=== PATIENT | male | born 1960 | race Caucasian/White ===

== ENCOUNTER 2019-01-13 09:29 | Emergency (ER) | payer OTHER ==
[~2019-01-13] VITALS: Ht 177.8 cm; Wt 86.2 kg
[2019-01-13 09:29] VITALS: BP 139/70
--- NOTE | 2019-01-13 09:30 | NUR ---
DARCY ANDRADE ALS TO ER BED 04
--- NOTE | 2019-01-13 09:40 | NUR ---
ACCU CHECK 160
[2019-01-13] MEDS ORDERED: MORPHINE SULFATE 2 MG/ML SYR IVP ONE (09:50)
[2019-01-13] MEDS ORDERED: levETIRAcetam 1,000 MG in NACL 0.9% 100 ML IV ONE (09:50)
[2019-01-13] MEDS ORDERED: NACL 0.9% 1,000 ML IV ONE (09:50)
--- NOTE | 2019-01-13 09:51 | NUR ---
XRAY AT BEDSIDE
--- NOTE | 2019-01-13 10:00 | NUR ---
PER EMS, WITNESSED SEIZURE BY BYSTANDER PT WAS WALKING DOWN STRE[address]. PT POSTICAL, DISORIENTED. FOLLOWS COMMANDS BY VOICE. HEMATOMA PRESENT TO PTS HEAD. C/O NECK PAIN. C-COLLAR PLACED IN FIELD. BS 155 IN FIELD. PT DENIES ANY MEDICAL HX, STATES UNKNOWN OF HAVING SEIZURE BEFORE., NO MEDS TAKEN BY PT AT HOME. PT RESPONSIVETO VOICE, AAOX3 . CONNECTED TO MONITOR. SEIZURE PRECAUTION INITATED. BED AT LOWER POSITION. ER MD ASSESSING PT. [facility]H- SEIZURES
--- NOTE | 2019-01-13 10:02 | NUR ---
PT WENT FOR CT.
[2019-01-13] MEDS ORDERED: levETIRAcetam 100 MG/ML VIAL IV ONE (10:08)
[2019-01-13 10:23] LABS: BASOPHILS % (AUTO) 0.3 % (0.0-2.0); EOSINOPHILS % (AUTO) 0.4 % (0.0-4.0); HEMATOCRIT 41.3 % (36-52); HEMOGLOBIN 13.9 g/dL (12.0-18.0); LYMPHOCYTES % (AUTO) 13.7 % (20.5-51.1); MEAN CORPUSCULAR HEMOGLOBIN 32 pg (27-31); MEAN CORPUSCULAR HGB CONC 34 g/dL (33-37); MEAN CORPUSCULAR VOLUME 95.7 fL (80-94); MONOCYTES # (AUTO) 0.6 K/uL (0.8-1.0); MONOCYTES % (AUTO) 7.9 % (1.7-9.3); NEUTROPHILS # (AUTO) 5.9 K/uL (1.8-7.7); NEUTROPHILS % (AUTO) 77.7 % (42.2-75.2); PLATELET COUNT (AUTO) 266 K/uL (140-450); RED BLOOD CELL COUNT(AUTO) 4.32 MIL/uL (4.20-6.10); RED CELL DISTRIBUTION WIDTH 13.6 % (11.6-13.7); WHITE BLOOD COUNT (AUTO) 7.6 K/uL (4.8-10.8)
--- NOTE | 2019-01-13 10:23 | NUR ---
PT BACK FROM CT. ADMINISTERED MEDS ORDERED. GAVE WATER TO PT TO DRINK, UNABLE TO PEE AT THIS TIME. WILL CHECK ON PT PT AGAIN. PT CONNECETD TO THE MONITOR. NO EPISODES OF SEIZURE OBSERVED AT THIS TIME. PT RESTING COMFORTABLY. WILL CONTINUE TO MONITOR PT.
[2019-01-13 10:36] LABS: CARBON DIOXIDE 27.5 mmol/L (21-32); CREATININE 1.1 mg/dL (0.7-1.3); POTASSIUM 4.5 mmol/L (3.5-5.1)
[2019-01-13 10:42] LABS: ALBUMIN 4.1 g/dL (3.4-5.0); TOTAL BILIRUBIN 0.5 mg/dL (0.0-1.0)
[2019-01-13 10:53] LABS: APPEARANCE,URINE CLEAR (CLEAR); BILIRUBIN,URINE NEGATIVE (NEGATIVE); BLOOD, URINE 1+ (NEGATIVE); COLOR,URINE YELLOW (YELLOW); LEUKOCYTE ESTERASE ,URINE NEGATIVE (NEGATIVE); NITRITE, URINE NEGATIVE (NEGATIVE); UGLUCOSE NEGATIVE (NEGATIVE)
[2019-01-13 11:10] LABS: BARBITURATE, URINE NEG. ng/ml (NEG <=200); BENZODIAZEPINE, URINE NEG. ng/mL (NEG <=200); CANNABINOID, URINE NEG. ng/mL (NEG <=50); COCAINE, URINE NEG. ng/mL (NEG <=300); OPIATE, URINE NEG. ng/mL (NEG <=2000); PHENCYCLIDINE SCREEN,URINE NEG. ng/mL (NEG <=25); WBC,URINE 0-5 /HPF (0-5)
[2019-01-13 12:00] VITALS: BP 136/64
--- NOTE | 2019-01-13 12:01 | NUR ---
Patient discharged with v/s stable. Written and verbal after care instructions given and explained. Patient alert, oriented and verbalized understanding of instructions. Ambulatory with steady gait. All questions addressed prior to discharge. ID band removed. Patient advised to follow up with PMD. Opportunity to ask questions provided and answered.
== END 2019-01-13 12:01 | disposition home or self-care (01) ==
LOC: MED 09:29
DX: S00.03XA Contusion of scalp, initial encounter (principal); R56.9 Unspecified convulsions; W19.XXXA Unspecified fall, initial encounter; Y93.89 Activity, other specified; Y92.89 Other specified places as the place of occurrence of the external cause; Y99.8 Other external cause status
CPT/HCPCS: 36415; 70450; 71045; 72125; 80053; 80305; 81001; 84484; 85025; 93005; 96365; 96375; 99284; G0482; J1953; J2270; J7030; Q0092